=== PATIENT | female | born 1995 | race Caucasian/White ===

== ENCOUNTER → 2017-01-13 | Outpatient (CLI) | payer OTHER | LOC: CIMAGING 13:22 | PROVIDERS: ATTEND Family Medicine | DX: M41.86 Other forms of scoliosis, lumbar region (principal) | CPT/HCPCS: 72100-PO ==

== ENCOUNTER 2018-07-24 21:30 | Emergency (ER) | payer OTHER ==
--- NOTE | 2018-07-24 22:20 | EDPHY ---
H & P Time Seen by Provider: 07/24/18 21:37 HPI/ROS: Chief complaint: Right foot laceration History of present illness: This is a 23-year-old female who presents to the emergency department for a right foot laceration. Patient dropped a ceramic bowel onto her foot just prior to arrival. The bowl broke in half cutting the foot. She does not believe any foreign objects could have gotten in the cut. She reports minimal pain. Minimal bleeding, that has been controlled with a dressing. No report of abnormal coolness or paresthesias in the foot. She is able to move the digits of the foot and the ankle well. No other injuries reported. Her tetanus is up-to-date. Smoking Status: Never smoked Physical Exam: General: Alert, nontoxic. Skin: 2 cm laceration to the medial aspect of the foot. No FB in laceration. It does not appear to extend deep. Musculoskeletal: Patient moving all digits in all snell well in the right foot. Moving the ankle in all snell well. Vascular: DP and PT pulses 2+. Capillary refill brisk in the right foot. Neurologic: Sensation intact throughout the right foot. Constitutional: Initial Vital Signs Temperature (C) 36.6 C 07/24/18 21:33 Heart Rate 84 07/24/18 21:33 Respiratory Rate 16 07/24/18 21:33 Blood Pressure 138/85 H 07/24/18 21:33 O2 Sat (%) 97 07/24/18 21:33 O2 Delivery Mode Room Air Allergies/Adverse Reactions: Penicillins Allergy (Mild, Verified 07/24/18 21:32) Rash MDM/Departure - MDM Procedures: Procedure: Laceration repair. Verbal consent was obtained from the patient. The 2 cm laceration on the right foot was anesthetized in the usual fashion. The wound was irrigated, draped and explored to its base with a gloved finger. There were no deep structures involved. No tendon injury was identified. The wound was repaired with 4 0 Ethilon, 5 simple interrupted sutures. The wound repair was simple. The procedure was performed by myself. ED Course/Re-evaluation: Patient seen under the supervision of my secondary supervising physician Dr. Nik Melara. Patient presents to the emergency department for a right foot laceration. It does not appear to extend deep. No evidence of deep structure injury or foreign body contamination. The wound is anesthetized, cleaned, repaired and dressed. Patient is discharged home. Home care is discussed. Return precautions are given. Patient voiced understanding and agreement with plan. Differential Diagnosis: Included but not limited to laceration, deep structure injury, foreign body contamination - Depart Disposition: Home, Routine, Self-Care Clinical Impression: Foot laceration Qualifiers: Encounter type: initial encounter Laterality: right Qualified Code(s): S91.311A - Laceration without foreign body, right foot, initial encounter Condition: Good Instructions: Laceration (ED), Acute Wounds (ED), Stitches Removal (ED) Additional Instructions: Follow-up with a primary care doctor or an orthopedic doctor for recheck Stitches are to be removed in approximately 2 weeks Keep wound clean with soap and water and change dressing at least twice daily If symptoms worsen or new symptoms develop return to the emergency room for recheck Referrals: Patient,NotPresent [Unknown] - As per Instructions Vinita Reynolds MD [Medical Doctor] - As per Instructions
[2018-07-24 22:35] VITALS: BP 123/75
== END 2018-07-24 22:30 | disposition home or self-care (01) ==
LOC: EDUNIT#
PROC: 0HQMXZZ Repair Right Foot Skin, External Approach (ICD-10-PCS; principal; 2018-07-24)
DX: S91.311A Laceration without foreign body, right foot, initial encounter (principal); W26.8XXA Contact with other sharp object(s), not elsewhere classified, initial encounter